=== PATIENT | female | born 1960 | race Caucasian/White ===

== ENCOUNTER 2018-05-04 16:45 | Emergency (ER) | payer OTHER ==
[2018-05-04 17:17] LABS: ABS Basophils 0.1 10^3/ul (0-0.2); ABS Eosinophils 0.1 10^3/ul (0-0.6); ABS Lymphocytes 2.8 10^3/ul (1.0-4.8); ABS Monocytes 0.5 10^3/ul (0-0.8); ABS Neutrophils 5.9 10^3/ul (1.5-7.7); ABS Nucleated RBC 0 10^3/ul; Eosinophil % 1.5 %; Hematocrit 38 % (35-47); Hemoglobin 12.8 g/dl (12.0-16.0); Lymphocyte % 30.1 %; Mean Corpuscular HGB Conc 34 g/dl (31-36); Mean Corpuscular Hemoglobin 31 pg (27-31); Mean Corpuscular Volume 93 fL (80-97); Mean Platelet Volume 6.9 fL (7.4-10.4); Nucleated Red Blood Cells % 0; Platelet Count 375 10^3/ul (150-450); Red Blood Count 4.09 10^6/ul (4.00-5.40); Red Cell Distribution Width 12 % (10.5-15); White Blood Count 9.4 10^3/ul (3.5-10.8)
[2018-05-04 17:23] LABS: INR 0.99 (0.77-1.02)
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
[2018-05-04 17:36] LABS: EGFR Non-African American 87.4 (>60)
[2018-05-04] MEDS ORDERED: NS 0.9% 1000 ML* 1,000 ML IV ONE (18:04)
== END 2018-05-04 19:11 | disposition home or self-care (01) ==
LOC: ED 16:45
DX: R55 Syncope and collapse (principal); T14.8XXA Other injury of unspecified body region, initial encounter; V48.5XXA Car driver injured in noncollision transport accident in traffic accident, initial encounter; Y92.9 Unspecified place or not applicable; M47.892 Other spondylosis, cervical region
CPT/HCPCS: 36415; 70450; 71046; 72125; 80053; 80320; 83605; 83735; 84443; 84484; 85025; 85610; 93005; 96360; 99282; G0480